=== PATIENT | male | born 1980 | race Caucasian/White ===

== ENCOUNTER 2016-06-27 10:05 | Emergency (ER) | payer OTHER ==
--- NOTE | 2016-06-27 11:10 | ED NURSING NOTES ---
Clinical Report - Nurses [facility] [address] [place] [address] 06/27/2016 10:05 Patient: MICKI HAGER TRIAGE Triage time 10:Jun 27 2016. Acuity: LEVEL 4. Chief Complaint: SYNCOPE and LOSS OF CONSCIOUSNESS (First neck surgery in neck was September 2014 for melanoma and another in November on the left lateral neck, when patient turns neck to side starts getting light headed and if he doesnt reverse quick enough he ends up passing out, arms get numb and tingling at time). 10:23 06/27/16. SEPSIS SCREEN: Sepsis Screen. Negative (no infection suspected/documented). DEBORAH COMA SCORE: Linneus Coma Scale: 15- eyes open spontaneously (4); best verbal response- oriented x 4 (5); best motor response- obeys commands (6). --10:23 Mechelle Mccoy R.N. 10:13 06/27/16. BP: 121/87 (large adult cuff) taken on the left arm, while sitting. HR: 97. RR: 18 (regular). O2 saturation: 97% on room air. Temp: 98.1 F (oral). Pain level now: 0/10. --10:23 Mechelle Mccoy R.N. Weight: 122.4 kg stated. Height/Length: 73 inches Per Patient. BMI: 35.6. --10:18 Mechelle Mccoy R.N. Medications OxyCODONE HCl Oral (Tablet 15 mg) 1 tablet, 4x a day. --10:18 Mechelle Mccoy R.N. Methocarbamol Oral. --10:18 Mechelle Mccoy R.N. Allergies Fentanyl. Sulfa Antibiotics. Vicodin. --10:18 Mechelle Mccoy R.N. History Arrived by private vehicle. Historian: patient and family. Accompanied by family. This started yesterday yesterday he passed out several times because of turning his head. Onset. (September 2014). PAST MEDICAL HX: ( Melanoma). SOCIAL HX: Light tobacco smoker (cigarette)- less than 1/2 a pack per day. History of heavy drug use: marijuana. Recently used drugs just prior to arrival. No alcohol use. No infectious disease exposure. ABUSE ASSESSMENT: No report of abuse. --10:23 Mechelle Mccoy R.N. PROBLEMS: Leukocytosis. Pneumonia. Cancer. Back Pain. Melanoma in situ of skin (clinical). General pain over multiple areas of his body due to many different issues. --10:18 Mechelle Mccoy R.N. ADDITIONAL SURGERIES: Colectomy. Melanoma surgery. Neck Surgery. --10:18 Mechelle Mccoy R.N. Interventions ID band on patient. To treatment room. --10:23 Mechelle Mccoy R.N. PHYSICAL ASSESSMENT 10:06/27/16. Ambulatory to room. GENERAL / NEURO / PSYCH: Awake. Oriented X 4. Alert. Appears in no acute distress. Speech normal. Mood/affect normal. No motor deficit. No sensory deficit. HEENT: Pupils equal, round and reactive to light. RESPIRATORY: Respirations not labored. CVS: Capillary refill less than 2 seconds. SKIN: Skin is warm. --10:26 Mechelle Mccoy R.N. NURSING PROGRESS NOTES 10:06/27/16. Head of bed elevated. Reassurance given. Two patient identifiers checked. Call light placed in reach. Side rails up x 1. Bed placed in lowest position. Brakes of bed on. Patient ready for evaluation- chart flagged and ED physician notified. --10: Mechelle Mccoy R.N. DISPOSITION / DISCHARGE 11:06/27/16. Condition at departure: unchanged. The patient left the Emergency Department without completion of treatment; patient was accompanied by spouse. The patient appears to be alert, oriented x4, coherent and uncooperative. The patient notified the ED staff prior to leaving the department and stated is leaving the ED due to personal reasons. Notified the ED physician of patient departure. Prior to leaving the ED, he was advised to stay for completion of treatment. Patient signed form prior to leaving. He left the Emergency Department ambulatory and via private vehicle. --11:14 Mechelle Mccoy R.N. Departure time: 11:Jun 27 2016. --11:14 Mechelle Mccoy R.N. Locked/Released at 06/27/2016 11:17 by Mechelle Mccoy R.N.
--- NOTE | 2016-06-27 11:10 | ED CLINICAL REPORT ---
Clinical Report - Physicians/Mid Levels [facility] [address] [place] [address] 06/27/2016 10:05 Patient: MICKI HAGER Time Seen: 10:16; initial patient contact. Arrived- By private vehicle. Historian- patient. HISTORY OF PRESENT ILLNESS The patient recovered at the scene. Chief Complaint: NEAR-SYNCOPE. This occurred yesterday. Event was witnessed. The patient felt faint and lost consciousness. No seizure activity, incontinence or apnea noted. The patient had preceding symptoms of light-headedness. Experienced repeated episodes. The episode was brief. Currently he has no symptoms. No injuries noted. (States that when he turns his head to the L, the side where he underwent a radical neck dissection last year, he begins to lose consciousness and his arms go numb. Reviewed records, pt was seen in 01/25 and had a WBC of 22k with no source of infection and refused a CXR and left AMA. He is now refusing an IV for labs and for IV contrast. I explained we would likely have to send him elsewhere for the CTA due to our scanner being down). Similar symptoms previously: Recent medical care: Not recently seen/assessed. REVIEW OF SYSTEMS No headache, chest pain or palpitations. He has had dizziness, weakness, and numbness. All systems otherwise negative, except as recorded above. PAST HISTORY ( Leukocytosis. Pneumonia. Cancer. Back Pain. Melanoma in situ of skin (clinical). General pain over multiple areas of his body due to many different issues. ADDITIONAL SURGERIES: Colectomy. Melanoma surgery. Neck Surgery.). SOCIAL HISTORY Current every day smoker. History of drug use: marijuana. Under influence in ED. ADDITIONAL NOTES The nursing notes have been reviewed with agreement regarding the chief complaint, PMH and patient medications and allergies. PHYSICAL EXAM Vital Signs: 06/27/2016 10:13 BP: 121/87. HR: 97. RR: 18. O2 saturation: 97%. Temp: 98.1 F. Pain level now: 0/10. Have been reviewed as normal. Appearance: Alert. No acute distress. (Overwhelming smell of marijuana). Eyes: Pupils equal, round and reactive to light. ENT: Normal ENT inspection. Mild generalized pharyngeal erythema. Moist mucous membranes. Neck: Normal inspection. Neck supple. No carotid bruit or lymphadenopathy. CVS: Normal heart rate and rhythm. Heart sounds normal. Respiratory: No respiratory distress. Breath sounds normal. Skin: Normal skin color. No rash. Extremities: No lower extremity edema. Neuro: Alert. Oriented X 3. Mood/affect normal. Speech normal. No motor deficit. No sensory deficit. PROGRESS AND PROCEDURES Discussed case with hospitalist, (call returned 11:06 Dr. Hernadez at [facility]. Explained the IV situation and agreed w/ making the pt sign out AMA if he again refuses an IV.). CLINICAL IMPRESSION Near syncope INSTRUCTIONS Your Current Medications: CONTINUE TAKING THE FOLLOWING MEDICATIONS: Methocarbamol Oral. OxyCODONE HCl Oral : Tablet 15 mg, 1 tablet 4x a day. Follow-up: Screening today revealed the patient's blood pressure to be in the pre-hypertensive range. The patient should follow up with a primary care provider for blood pressure management. AMA warnings: Time of assessment: 11:11. Oriented to person, place, and time. Gives appropriate answers and rational explanation of refusal of care. Speaks coherently. No signs of psychosis, auditory hallucinations, delusional thinking, suicidal ideations or slurred speech. No tangential thinking, visual hallucinations or homicidal ideations. Abstract thinking intact. Clinical Impression: the patient has the capacity to make decisions regarding the medical care offered. Relevant issues reviewed and discussed with the patient and family. Aware of suspected diagnosis suggested by screening exam. The suspected diagnosis, based upon the initiated medical screening exam, is Possible carotid occlusion and has been discussed with the patient and family. Acknowledges understanding of the reasons for recommendations regarding medical treatment, medical tests, procedures and transfer to other medical facility. The recommended medical care being refused has been discussed with the patient and family. The risks of refusing recommended care that were disclosed and acknowledged are , quadriplegia, paraplegia, permanent mental impairment and loss of current lifestyle. (No alternatives, receiving MD refused to accept pt w/out IV or labs.). Discharge instructions were provided to the patient. REFUSAL OF CARE STATEMENT (patient to review and sign in discharge instructions): I have read this paragraph. I understand that a doctor at this hospital wants to give me certain medical care. The doctor explained that care to me, and I understand what that care is. The doctor also explained to me what could happen to me if I leave here without having that care, and I understand what he said. I want to leave this hospital without receiving the recommended care. I know that I am welcome to return to this hospital at any time to receive the recommended care or any other care that I may need at any time, regardless of my ability to pay for such care. (Electronically signed by Jonathan Mitchell Dr. 06/27/2016 16:18)
--- NOTE | 2016-06-27 16:19 | ED MAR SUMMARY ---
..... Medication Administration Record [facility] [address] [place], [place] [id number] Patient: MICKI HAGER Visit ID: [id number] 36y, M Weight: 122.4 kg Height/Length: 73 in BMI: 35.6 ALLERGIES: Fentanyl, Sulfa Antibiotics, Vicodin
--- NOTE | 2016-06-27 16:19 | ED MAR SUMMARY ---
..... Medication Administration Record [facility] [address] [place], [place] [id number] Patient: MICKI HAGER Visit ID: [id number] 36y, M Weight: 122.4 kg Height/Length: 73 in BMI: 35.6 ALLERGIES: Fentanyl, Sulfa Antibiotics, Vicodin
--- NOTE | 2016-06-27 16:19 | ED DISCHARGE INSTRUCTIONS ---
Patient: MICKI HAGER General Instructions [facility] VisitID: [id number] [place] [address] 36y, M Registration Date/Time: 06/27/2016 Near syncope INSTRUCTIONS Your Current Medications: CONTINUE TAKING THE FOLLOWING MEDICATIONS: Methocarbamol Oral. OxyCODONE HCl Oral : Tablet 15 mg, 1 tablet 4x a day. Follow-up: Screening today revealed the patient's blood pressure to be in the pre-hypertensive range. The patient should follow up with a primary care provider for blood pressure management. AMA warnings: Time of assessment: 11:11. Oriented to person, place, and time. Gives appropriate answers and rational explanation of refusal of care. Speaks coherently. No signs of psychosis, auditory hallucinations, delusional thinking, suicidal ideations or slurred speech. No tangential thinking, visual hallucinations or homicidal ideations. Abstract thinking intact. Clinical Impression: the patient has the capacity to make decisions regarding the medical care offered. Relevant issues reviewed and discussed with the patient and family. Aware of suspected diagnosis suggested by screening exam. The suspected diagnosis, based upon the initiated medical screening exam, is Possible carotid occlusion and has been discussed with the patient and family. Acknowledges understanding of the reasons for recommendations regarding medical treatment, medical tests, procedures and transfer to other medical facility. The recommended medical care being refused has been discussed with the patient and family. The risks of refusing recommended care that were disclosed and acknowledged are , quadriplegia, paraplegia, permanent mental impairment and loss of current lifestyle. (No alternatives, receiving MD refused to accept pt w/out IV or labs.). Discharge instructions were provided to the patient. REFUSAL OF CARE STATEMENT (patient to review and sign in discharge instructions): I have read this paragraph. I understand that a doctor at this hospital wants to give me certain medical care. The doctor explained that care to me, and I understand what that care is. The doctor also explained to me what could happen to me if I leave here without having that care, and I understand what he said. I want to leave this hospital without receiving the recommended care. I know that I am welcome to return to this hospital at any time to receive the recommended care or any other care that I may need at any time, regardless of my ability to pay for such care. ADDITIONAL INFORMATION Near-Fainting:Uncertain Cause Fainting (syncope) is a temporary loss of consciousness ("passing out"). It occurs when blood flow to the brain is reduced. Near-fainting ("near-syncope") is like fainting, but you do not fully "pass out." The common minor causes of near fainting include sudden fear, pain, emotional stress, overexertion, or quickly standing up after sitting or lying for a long time. The more serious causes for near fainting are due to either a very slow or very fast heart beat, dehydration, anemia, blood loss, problems related to the heart, or taking too much high blood pressure medicine. The exact cause of your episode is not certain. More tests may be required. Therefore, it is important that you follow up with your doctor as advised. Home Care: 1) Rest today. Resume your normal activities as soon as you are feeling back to normal. 2) If you become light-headed or dizzy, lie down right away or sit with your head between your knees. 3) Because we do not know the exact cause of your near fainting spell, another spell could occur without warning. Therefore, do not drive a car or use dangerous equipment. D o not take a bath alone (use a shower instead). Do not swim alone. You can resume these activities when your doctor says that you are no longer in danger of having a near fainting spell. 4) Stay well hydrated by drinking enough fluid each day. Follow Up with your doctor as instructed. Get Prompt Medical Attention if any of the following occur: -- Another fainting spell occurs, and it is not explained by the common causes listed above -- Chest, arm, neck, jaw, back or abdominal pain -- Shortness of breath -- Weakness, tingling or numbness in one side of the face, one arm or leg -- Slurred speech, confusion, trouble walking or seeing -- Seizure -- Blood in vomit, stools (black or red color) -- (In women) unexpected vaginal bleeding You have been given the following additional information: Near Syncope, Unknown (Electronically signed by Jonathan Mitchell Dr. 06/27/2016 16:18)
--- NOTE | 2016-06-27 16:19 | ED MED RECONCILIATION SUMMARY ---
Patient: MICKI HAGER Medication Reconciliation Report [facility] VisitID: [id number] [address] [place] [address] 36y, M Registration Date/Time: 06/27/2016 Weight: 122.4 kg Height/Length: 73 in. BMI: 35.6 ALLERGIES: Fentanyl, Sulfa Antibiotics, Vicodin The patient's Home Medications are listed below: CONTINUE TAKING THE FOLLOWING MEDICATIONS: Methocarbamol Oral OxyCODONE HCl Oral (15 mg) 1 tablet, 4x a day The source(s) of the original Home Medication information: Not obtained. The following Medications were given to the patient in the Emergency Department: None. The following Medications were prescribed to the patient: None.
--- NOTE | 2016-06-27 16:19 | ED MED RECONCILIATION SUMMARY ---
Patient: MICKI HAGER Medication Reconciliation Report [facility] VisitID: [id number] [address] [place] [address] 36y, M Registration Date/Time: 06/27/2016 Weight: 122.4 kg Height/Length: 73 in. BMI: 35.6 ALLERGIES: Fentanyl, Sulfa Antibiotics, Vicodin The patient's Home Medications are listed below: CONTINUE TAKING THE FOLLOWING MEDICATIONS: Methocarbamol Oral OxyCODONE HCl Oral (15 mg) 1 tablet, 4x a day The source(s) of the original Home Medication information: Not obtained. The following Medications were given to the patient in the Emergency Department: None. The following Medications were prescribed to the patient: None.
== END 2016-06-27 11:14 | disposition home or self-care (01) ==
LOC: ED SRH 10:05
DX: R55 Syncope and collapse (principal); F17.210 Nicotine dependence, cigarettes, uncomplicated; Z79.891 Long term (current) use of opiate analgesic